=== PATIENT | male | born 1980 | race Caucasian/White ===

== ENCOUNTER 2018-10-03 18:57 | Emergency (ER) | payer OTHER ==
[~2018-10-03 18:57] MED LIST: Propofol 1,000 MG/100 ML SDV ONE
[2018-10-03] MEDS ORDERED: Diphtheria,Pertussis(Acell),Tetanus Vaccine 0.5 ML Syringe IM ONE (19:14)
[2018-10-03] MEDS ORDERED: cefTRIAXone 1 GM in Premix Bag 1 BAG IV ONE (19:14)
[2018-10-03] MEDS ORDERED: Sodium Chloride 0.9% 1,000 ML IV ONE ×2 (19:19)
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
[2018-10-03] MEDS ORDERED: 50% Dextrose in Water 50 ML Syringe ONE (19:30)
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
[2018-10-03 19:42] LABS: CHLORIDE,CL 103 mmol/L (98-107); SODIUM,NA 140 mmol/L (136-148)
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
[2018-10-04] MEDS ORDERED: Propofol 1,000 MG/100 ML SDV ONE (18:00)
== END 2018-10-03 19:20 ==
LOC: MW.ED 18:57 → EDBD 19:06 → MW.ED 19:06
DX: S01.01XA Laceration without foreign body of scalp, initial encounter (principal); S40.812A Abrasion of left upper arm, initial encounter; S40.811A Abrasion of right upper arm, initial encounter; Z23 Encounter for immunization; V27.4XXA Motorcycle driver injured in collision with fixed or stationary object in traffic accident, initial encounter
CPT/HCPCS: 51702; 71045; 72170; 80053; 80305; 81001; 84484; 85025; 85610; 86850; 86900; 86901; 90471; 90715; 96374; 99285; A4217; G0390; J0696; J7040; J7060; 99284; J2704